=== PATIENT | female | born 1950 | race Caucasian/White ===

== ENCOUNTER 2019-05-22 02:31 | Outpatient (CLI) | payer BC, SELFPAY ==
[2019-05-22 12:52] LABS: ALT 23 U/L (14-59); AST 16 U/L (15-37); Albumin 3.5 g/dL (3.4-5.0); Alkaline Phosphatase 74 U/L (46-116); Anion Gap 8.7 mmol/L (3-11); BUN 15 mg/dL (7-18); Bilirubin, Total 0.6 mg/dL (0.2-1.0); CO2 28.3 mmol/L (21.0-32.0); CREATININE 0.86 mg/dL (0.55-1.02); Calcium 8.9 mg/dL (8.5-10.1); Calculated LDL 162 mg/dL (<100); Chloride 104 mmol/L (98-107); Cholesterol 248 mg/dL (<200); Glucose 101 mg/dL (74-106); HDL Cholesterol 50 mg/dL (40-60); Potassium 4.2 mmol/L (3.5-5.1); Sodium 141 mmol/L (136-145); TSH 6.14 uIU/mL (0.36-3.74); Total Protein 6.9 g/dL (6.4-8.2); Triglyceride 184 mg/dL (<150)
[2019-05-22 12:58] LABS: Hemoglobin A1C 7.7 % (3.8-5.6)
[2019-05-22 13:30] LABS: FREE T4 0.91 ng/dL (0.76-1.46)
== END 2019-05-22 02:51 ==
PROVIDERS: PCP Nurse Practitioner Family; Visit Provider Nurse Practitioner Family
DX: E78.5 Hyperlipidemia, unspecified (principal); E11.9 Type 2 diabetes mellitus without complications; Z00.00 Encounter for general adult medical examination without abnormal findings
CPT/HCPCS: 36415; 80053; 80061; 83036; 84439; 84443

== ENCOUNTER 2020-04-21 15:30 | Outpatient (REF) | payer BC, SELFPAY ==
[2020-04-23 11:16] LABS: COVID-19 RT-PCR UVMMC Result Negative (Negative)
== END 2020-04-21 15:50 ==
LOC: NCHCN 15:30
PROVIDERS: PCP Nurse Practitioner Family; Visit Provider Internal Medicine
DX: Z20.822 Contact with and (suspected) exposure to COVID-19 (principal)
CPT/HCPCS: U0003